=== PATIENT | male | born 1940 | race Caucasian/White ===

== ENCOUNTER 2016-11-29 07:54 | Emergency (ER) | payer MEDICARE ==
--- NOTE | 2016-11-29 08:41 | ER NURSING DOCUMENTATION ---
Nurse's Notes [facility] Name:Neil Kumar Age:76 yrs Sex:Male :1940 Arrival Date:11/29/2016 Time:07:54 Bed6 Private MD: Diagnosis:Chest Contusion Presentation: 11/29 08:00 Presenting complaint: Patient states: pt fell yesterday while on a hike. pt now has st right sided chest pain. Transition of care: Home. 08:00 Method Of Arrival: Private Vehicle st 08:05 Acuity: KATHE 4 st Triage Assessment: 08:00 General: Appears in no apparent distress, Behavior is cooperative. Pain: Complains of st pain in left lateral anterior chest Pain currently is 2 out of 10 on a pain scale. At worst was 10 out of 10 on a pain scale. Pain began 1 day ago Aggravated by deep breathing. Cardiovascular: No deficits noted. Respiratory: Airway is patent Respiratory effort is even, unlabored, Respiratory pattern is regular, symmetrical. GI: No deficits noted. Injury Description: Bruise sustained to left arm dressed wounds to the left arm. pt states that the wounds where cleaned and are not a problem. Historical: - Allergies: No known drug Allergies; - Home Meds: 1. ramipril Oral - PMHx: lucemia; - Tetanus: < 10 years. - Ebola Screening: : Patient denies exposure to infectious person. Patient denies travel to an Ebola-affected area in the 21 days before illness onset. . - Social history: Smoking status: Patient states was never smoker of tobacco. Patient uses alcohol Patient/guardian denies using marijuana. Screenin:00 Infectious Disease Risk None. Abuse screen: Denies threats or abuse. Denies injuries st from another. pt feels safe at home. Nutritional screening: No deficits noted. Vital Signs: 08:00 BP 144 / 53; Pulse 62; Resp 20; Temp 97.5; Pulse Ox 94% on R/A; Pain 2/10; st [place] Coma Score: 08:15 Eye Response: spontaneous(4). Verbal Response: oriented(5). Motor Response: obeys cd commands(6). Total: 15. ED Course: 07:57 Patient arrived in ED. ds 08:00 Valuables Remains with patient Patient has correct armband on for positive st identification. Placed in gown. Bed in low position. 08:05 Katie Fragoso, RN is Primary Nurse. st 08:[address] 08:05 Patient moved to radiology. tt 08:10 Patient moved back from radiology. tt 08:15 Armen Cifuentes MD is Attending Physician. cd Administered Medications: No medications were administered Outcome: 08:31 Discharge ordered by . cd 08:40 Discharged to home ambulatory. st 08:40 Condition: stable 08:40 Discharge instructions given to patient, Instructed on discharge instructions, follow up and referral plans. Incentive Spirometer medication usage. 08:40 Patient [address] the ED. st 06 17:30 Discharge F/U Call: Unable to reach: no answer nf Signatures: Katie Fragoso RN RN st Friel, Nicole, RN RN nf Srot, Harriet, Reg Reg ds Armen Cifuentes MD MD cd Terriere, Tracy tt
--- NOTE | 2016-11-29 08:41 | ER PHYSICIAN DOCUMENTATION ---
Physician Documentation [facility] Name:Neil Kumar Age:76 yrs Sex:Male :1940 Arrival Date:11/29/2016 Time:07:54 Bed6 Private MD: Armen Avendaño Disposition: 11/29 08:35 Chart complete. cd Disposition: 11/29/16 08:31 Discharged to Home/Self Care. Impression: Chest Contusion. - Condition is Good. - Discharge Instructions: CHEST CONTUSION - CHEST WALL CONTUSION. - Medical Reconciliation form form. - Follow up: Private Physician; When: 10 - 14 days; Reason: Recheck today's complaints, Continuance of care. - Problem is new. - Symptoms are unchanged. - Notes: Use the Incentive Spirometer throughout the day. Take Deep breaths throughout the day. Take Ibuprofen 400mg by mouth with food every 6 hours for 3 - 4 days. HPI: 08:00 This 76 yrs old Male presents to ER via Private Vehicle with complaints of cd Fall Injury - RIB. 08:00 Details of fall: The patient fell from an upright position, while walking. Onset: The cd symptom(s)/episode began/occurred acutely, yesterday. Associated injuries: The patient sustained injury to the chest, specifically the left lateral anterior chest. Associated signs and symptoms: The patient has no apparent associated signs or symptoms, Pertinent negatives: abdominal pain, confusion, headache, memory problems, nausea, pelvic pain, shortness of breath, vomiting. Severity of symptoms: At their worst the symptoms were moderate, in the emergency department the symptoms have improved, mildly. The patient has not experienced similar symptoms in the past. Historical: - Allergies: No known drug Allergies; - Home Meds: 1. ramipril Oral - PMHx: lucemia; - Tetanus: < 10 years. - Ebola Screening: : Patient denies exposure to infectious person. Patient denies travel to an Ebola-affected area in the 21 days before illness onset. . - Social history: Smoking status: Patient states was never smoker of tobacco. Patient uses alcohol Patient/guardian denies using marijuana. ROS: 08:00 ENT: Negative for injury, pain, epistaxis and discharge. cd Neck: Negative for injury, pain, stiffness and swelling. Abdomen/GI: Negative for abdominal pain, nausea, vomiting, diarrhea, constipation, distension, melena, hematochezia and hematemesis. Back: Negative for injury, pain or muscle spasms. : Negative for injury, bleeding, discharge, swelling, dysuria, frequency or urgency. MS/Extremity: Negative for injury, deformity, edema, calf tenderness, pain or coldness. Skin: Negative for injury, rash, itching and discoloration. 08:00 Neuro: Negative for headache, weakness, numbness, tingling, and seizure. cd 08:00 Constitutional: Negative for chills, fever. 08:00 Cardiovascular: Positive for chest pain, Negative for palpitations. 08:00 Respiratory: Negative for cough, hemoptysis, pleurisy, shortness of breath, wheezing. 08:00 MS/extremity: Negative for acute changes, injury or acute deformity. 08:00 All other systems are negative. Exam: Head/Face: Normocephalic, atraumatic. ENT: Nares patent. No nasal discharge, no septal abnormalities noted. Tympanic membranes are normal and external auditory canals are clear. Oropharynx with no redness, swelling, or masses, exudates, or evidence of obstruction, uvula midline. Mucous membranes moist. Neck: Trachea midline, no thyromegaly or masses palpated, and no cervical lymphadenopathy. Supple, full range of motion without nuchal rigidity, or vertebral point tenderness. No Meningismus. Cardiovascular: Regular rate and rhythm with a normal S1 and S2. No gallops, murmurs, or rubs. Normal PMI, no JVD. No pulse deficits. Respiratory: Lungs have equal breath sounds bilaterally, clear to auscultation and percussion. No rales, rhonchi or wheezes noted. No increased work of breathing, no retractions or nasal flaring. Abdomen/GI: Soft, non-tender, with normal bowel sounds. No distension or tympany. No guarding or rebound. No evidence of tenderness throughout. Back: No spinal tenderness. No costovertebral tenderness. Full range of motion. Skin: Warm, dry with normal turgor. Normal color with no rashes, no lesions, and no evidence of cellulitis. MS/ Extremity: Pulses equal, no cyanosis. Neurovascular intact. Full, normal range of motion. 08:15 Neuro: Awake and alert, GCS 15, oriented to person, place, time, and situation. cd Cranial nerves II-XII grossly intact. Motor strength 5/5 in all extremities. Sensory grossly intact. Cerebellar exam normal. Normal gait. 08:15 Constitutional: The patient appears alert, awake, non-diaphoretic, anxious, in obvious distress, mildly distressed. 08:15 Chest/axilla: Inspection: normal, Palpation: crepitus, is not appreciated, tenderness, that is moderate, of the left lateral anterior chest, that totally reproduces the patient's complaints. 08:15 Musculoskeletal/extremity: Exam is negative for acute changes. 08:15 Neuro: Exam negative for acute changes, Orientation: is normal, Mentation: is normal, Cranial nerves: CN II- XII are normal as tested, Motor: is normal, Sensation: is normal. Vital Signs: 08:00 BP 144 / 53; Pulse 62; Resp 20; Temp 97.5; Pulse Ox 94% on R/A; Pain 2/10; st [place] Coma Score: 08:15 Eye Response: spontaneous(4). Verbal Response: oriented(5). Motor Response: obeys cd commands(6). Total: 15. MDM: 08:02 Data interpreted: Pulse oximetry: on room air is 94 %. Interpretation: normal. cd 08:10 Differential diagnosis: contusion, fracture, sprain, strain. cd 08:15 Patient medically screened. cd 08:25 Data reviewed: vital signs, nurses notes, old medical records, radiologic studies, cd plain films, and as a result, I will. 08:35 Counseling: I had a detailed discussion with the patient and/or guardian regarding: the cd historical points, exam findings, and any diagnostic results supporting the discharge/admit diagnosis, radiology results, the need for outpatient follow up, for a recheck, with the patient's primary care provider, to return to the emergency department if symptoms worsen or persist or if there are any questions or concerns that arise at home. 11/29 21:21 Order name: RIBS UNI W/[place] [id number]; Complete Time: 12:04 EDMS 11/30 12:04 Interpretation: Abnormal: Acute non-displaced Left lateral 11th rib, No Pneumothorax. cd See Radiologist Reading. 11/29 08:30 Order name: Incentive Spirometer; Complete Time: 08:39 cd Dispensed Medications: No medications were administered Signatures: Katie Fragoso RN RN st Daley, Chris, MD MD cd
--- NOTE | 2016-11-29 19:40 | RADIOLOGY REPORT ---
Views of the chest and left ribs demonstrate the heart and vessels to be unremarkable. There is blunting of the left costophrenic angle, consistent with a small amount of hemothorax. Fracture of the posterolateral aspect of the left eleventh rib is identified. No other abnormality is identified. IMPRESSION: Fracture of the posterolateral aspect of the left eleventh rib. Additional fractures are not excluded. Small left hemothorax is identified. No pneumothorax is identified. MTDD
== END 2016-11-29 08:41 | disposition home or self-care (01) ==
LOC: ER 07:54
DX: S20.212A Contusion of left front wall of thorax, initial encounter (principal); S22.32XA Fracture of one rib, left side, initial encounter for closed fracture; W18.39XA Other fall on same level, initial encounter; Y92.838 Other recreation area as the place of occurrence of the external cause; Y93.01 Activity, walking, marching and hiking; Z79.899 Other long term (current) drug therapy
CPT/HCPCS: 99283

== ENCOUNTER 2016-12-02 11:06 | Emergency (ER) | payer MEDICARE ==
--- NOTE | 2016-12-02 11:28 | ER PHYSICIAN DOCUMENTATION ---
Physician Documentation [facility] Name:Neil Kumar Age:76 yrs Sex:Male :1940 Arrival Date:12/02/2016 Time:11:06 Bed1 Private MD: Armen Avendaño Disposition: 12/02 11:31 Chart complete. cd Disposition: 12/02/16 11:15 Discharged to Home/Self Care. Impression: Rib Fracture - : Left 11th Rib, Non-displaced, Chest Wall Pain. - Condition is Good. - Discharge Instructions: RIB FRACTURE - FRACTURE, Rib. - Medical Reconciliation form form. - Follow up: Private Physician; When: 7 - 10 days; Reason: Recheck today's complaints, Continuance of care. - Problem is new. - Symptoms are unchanged. - Notes: Ice Pack to chest when needed. Continue Incentive Spirometer throughout each day to help you take deep breaths. Ibuprofen 600mg by mouth every 6 hours with food for 2 - 3 days Hydrocodone one tab by mouth every 6 hours with food as needed for pain. Limit movement and activities as to not cause pain.... Follow up with your Physician in 7 - 10 days for recheck. Do not drive or drink alcohol while taking Hydrocodone. HPI: 11:24 This 76 yrs old Male presents to ER via Private Vehicle with complaints of L cd SIDE RIB INJ. 11:24 The patient or guardian reports chest pain that is located primarily in the left cd lateral anterior chest. Onset: The symptom(s)/episode began/occurred acutely, 3 day(s) ago, and became worse last night, after rolling over in bed. The pain does not radiate. There has been no movement of pain. Associated signs and symptoms: Pertinent negatives: abdominal pain, diaphoresis, dizziness, lightheadedness, nausea, palpitations, shortness of breath, vomiting. The chest pain is described as sharp. Severity of pain: At its worst the pain was moderate in the emergency department the pain is unchanged. 11:27 The patient has experienced a previous episode, approximately 3 days ago, and the cd symptoms today are exactly the same, Patient was seen in the ED by me. My initial reading of the Left Rib Series was negative. Radiologist, Graeme Griffith MD, read the series as having an 11 th Rib fracture and very small hemothorax. The next day I called the patient's Home Phone number (the only number in the record ) and left a message to call me HONG.. Historical: - Allergies: No known drug Allergies; - Home Meds: 1. ramipril Oral - PMHx: lucemia; - Tetanus: < 10 years. - Ebola Screening: : Patient denies exposure to infectious person. Patient denies travel to an Ebola-affected area in the 21 days before illness onset. . - Social history: Smoking status: Patient states former smoker of tobacco. Patient uses alcohol Patient/guardian denies using marijuana. ROS: 11:26 Neck: Negative for injury, pain, stiffness and swelling. cd Abdomen/GI: Negative for abdominal pain, nausea, vomiting, diarrhea, constipation, distension, melena, hematochezia and hematemesis. Back: Negative for injury, pain or muscle spasms. MS/Extremity: Negative for injury, deformity, edema, calf tenderness, pain or coldness. Skin: Negative for injury, rash, itching and discoloration. 11:26 Neuro: Negative for headache, weakness, numbness, tingling, and seizure. cd 11:26 Constitutional: Negative for chills, fever, poor PO intake. 11:26 Cardiovascular: Positive for chest pain, with movement, of the left lateral anterior chest, Negative for edema, orthopnea, palpitations. 11:26 Respiratory: Positive for pleurisy, Negative for cough, dyspnea on exertion, hemoptysis, shortness of breath, wheezing. Exam: 11:26 Constitutional: The patient appears alert, awake, non-diaphoretic, non-toxic, well cd developed, well nourished, in obvious distress, mildly distressed. 11:26 Neck: Exam negative for acute changes. 11:26 Chest/axilla: Inspection: normal, Palpation: tenderness, that is moderate, of the left lateral anterior chest, that totally reproduces the patient's complaints. 11:26 Cardiovascular: Rate: normal, Rhythm: regular, Heart sounds: normal. 11:26 Respiratory: the patient does not display signs of respiratory distress, Respirations: normal, no acute changes, Breath sounds: are normal, clear throughout. 11:26 Abdomen/GI: Inspection: abdomen appears normal, Palpation: abdomen is soft and non-tender. 11:31 Musculoskeletal/extremity: Exam is negative for acute changes. cd Vital Signs: 11:17 BP 131 / 69; Pulse 66; Resp 18; Pulse Ox 94% on R/A; Pain 4/10; st MDM: 11:09 Patient medically screened. cd 11:30 Differential diagnosis: Blunt Chest Trauma Chest Wall Contusion Rib Fracture. Data cd reviewed: vital signs, nurses notes, old medical records, radiologic studies, from 11/29/2016, and as a result, I will discharge patient, prescribe pain medication, hydrocodone. Data interpreted: Pulse oximetry: on room air is 94 %. Interpretation: normal. Counseling: I had a detailed discussion with the patient and/or guardian regarding: the historical points, exam findings, and any diagnostic results supporting the discharge/admit diagnosis, radiology results, the need for outpatient follow up, for a recheck, with the patient's primary care provider, to return to the emergency department if symptoms worsen or persist or if there are any questions or concerns that arise at home. Dispensed Medications: No medications were administered Signatures: Katie Fragoso RN RN st Daley, Chris, MD MD cd
--- NOTE | 2016-12-02 11:28 | ER NURSING DOCUMENTATION ---
Nurse's Notes [facility] Name:Neil Kumar Age:76 yrs Sex:Male :1940 Arrival Date:12/02/2016 Time:11:06 Bed1 Private MD: Diagnosis:Rib Fracture-: Left 11th Rib, Non-displaced;Chest Wall Pain Presentation: 12/02 11:15 Presenting complaint: Patient states: pt has a broken rib on the left side last night st he rolled over in bed and had excruciating pain. pain is better now but pt wants something for pain if that happens again. Transition of care: Home. 11:15 Acuity: KATHE 4 st 11:15 Method Of Arrival: Private Vehicle st Triage Assessment: 11:17 General: Appears in no apparent distress, Behavior is cooperative. Pain: Complains of st pain in left lateral anterior chest and left lateral posterior chest Pain currently is 4 out of 10 on a pain scale. Respiratory: Airway is patent Respiratory effort is even, unlabored, Respiratory pattern is regular, symmetrical, Breath sounds are clear bilaterally. Historical: - Allergies: No known drug Allergies; - Home Meds: 1. ramipril Oral - PMHx: lucemia; - Tetanus: < 10 years. - Ebola Screening: : Patient denies exposure to infectious person. Patient denies travel to an Ebola-affected area in the 21 days before illness onset. . - Social history: Smoking status: Patient states former smoker of tobacco. Patient uses alcohol Patient/guardian denies using marijuana. Screenin:18 Infectious Disease Risk None. Abuse screen: Denies threats or abuse. Denies injuries st from another. pt feels safe at home. Nutritional screening: No deficits noted. Vital Signs: 11:17 BP 131 / 69; Pulse 66; Resp 18; Pulse Ox 94% on R/A; Pain 4/10; st ED Course: 11:07 Patient arrived in ED. ama 11:09 Katie Fragoso RN is Primary Nurse. st 11:09 Armen Cifuentes MD is Attending Physician. cd 11:[address] 11:18 Valuables Remains with patient Patient has correct armband on for positive st identification. Bed in low position. 11:26 Ice pack to injury. st Administered Medications: No medications were administered Outcome: 11:15 Discharge ordered by MD. cd 11:26 Discharged to home ambulatory. 11: Condition: stable 11:26 Discharge instructions given to patient, Instructed on discharge instructions, follow up and referral plans. medication usage, Prescriptions given X 1. 11: Patient left the ED. 12/03 14:57 Discharge F/U Call: Spoke with: patient. What is the one thing you feel we could do mk2 to improve? Patient's answer: yes Signatures: Katie Fragoso, RN RN Armen Joyner MD MD cd Kruger, Meg, RN RN Tevin Vernon, Reg Reg ama
== END 2016-12-02 11:28 | disposition home or self-care (01) ==
LOC: ER 11:06
DX: R07.81 Pleurodynia (principal); R09.1 Pleurisy; S22.32XD Fracture of one rib, left side, subsequent encounter for fracture with routine healing; Z79.899 Other long term (current) drug therapy
CPT/HCPCS: 99281